=== PATIENT | male | born 1985 | race Caucasian/White ===

== ENCOUNTER 2016-08-08 15:12 | Emergency (ER) | payer OTHER ==
[~2016-08-08] VITALS: Ht 175.3 cm; Wt 79.4 kg
[~2016-08-08 15:12] MED LIST: AURALGAN 14 ML14 ML AS
[2016-08-08 15:45] VITALS: BP 111/69
[2016-08-08] MEDS ORDERED: FIORICET 50-301 EACH PO (17:24)
[2016-08-08] MEDS ORDERED: IMITREX50 M1 PO (17:24)
[2016-08-08] MEDS ORDERED: KETOROLAC TROME10 M1 PO (17:24)
--- NOTE | 2016-08-08 17:25 | ED HEADACHE COMPLAINT ---
History of Present Illness General Chief Complaint: Headache Stated Complaint: REGAN Source: patient Exam Limitations: no limitations Vital Signs & Intake/Output Vital Signs & Intake/Output Vital Signs Date Time Temp Pulse Resp B/P B/P Pulse O2 O2 Flow FiO2 Mean Ox Delivery Rate 08/08 1545 97.7 70 15 111/69 98 Room Air Room Air Allergies Coded Allergies: No Known Allergies (08/08/16) Reconcile Medications Acetic Acid/Antipyrine/Benzo (Auralgan 14 Ml) 14 ML BAY 3-4 GTT BID PRN EAR PAIN Butalb/Acetaminophen/Caffeine (Fioricet 50-300-40 MG Capsule) 50 MG-300 MG-40 MG CAPSULE 1 TAB PO TID PRN HEADACHE Ketorolac Tromethamine 10 MG TABLET 1 TAB PO TID PRN HEADACHE RECEIVED IM IN ER Sumatriptan Succinate (Imitrex) 50 MG TABLET 1 TAB PO AD PRN MIGRAINE TAKE ONE TAB, IF NO BETTER TAKE SECOND TAB IN 30 MINUTES, DO NOT EXCEED TWO TABS IN ONE DAY Triage Note: PT TO ED FOR HEADACHE THAT STARTED THURSDAY THAT ISN'T GOING AWAY. PER PT, FIRST TIME GETTING A HEADACHE FOR THIS LONG. DOES HAVE SEASONAL ALLERGIES WITH SOME CONGESTION. GOT A CORTISONE SHOT ON THURSDAY FOR ALLERGIES AND HEADACHE IS STILL NOT IMPROVING DESPITE ALSO USING MOTRIN. DENIES N/V, PHOTOSENSITIVITY, DIPLOPIA OR BLURRY VISION. Triage Nurses Notes Reviewed? yes Onset: Gradual Duration: waxing and waning Timing: recent history Quality/Severity: moderate Severity Numbers: 5 HPI: Patient is a 30-year-old male with a past medical history of seasonal allergies who presents emergency room with concerns of a 6 day history of intermittent throbbing bilateral temporal headache complaints. Patient was evaluated by primary care doctor on Thursday received cortisone injection with relief of symptoms. Patient has associated symptoms of sensitivity to loud noises. Denies any fever or chills blurred vision and photophobia and nausea vomiting. Denies any acute onset or thunderclap headache or worse headache of life. Patient has been taking ibuprofen with mild relief of symptoms. Patient can tolerate by mouth Patient does admit to significant caffeine use however in the past week he's decreased this Past History Travel History Traveled to [place] past 21 day No Medical History Any Pertinent Medical History? 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 No Review of Systems Review of Systems Constitutional: Reports: no symptoms. Eyes: Reports: no symptoms. Ears, Nose, Throat, Mouth: Reports: no symptoms. Respiratory: Reports: no symptoms. Cardiovascular: Reports: no symptoms. Gastrointestinal/Abdominal: Reports: no symptoms. Genitourinary: Reports: no symptoms. Musculoskeletal: Reports: no symptoms. Skin: Reports: no symptoms. Neurological/Psychological: Reports: see HPI, headache. Hematologic/Endocrine: Reports: no symptoms. Endocrine: Reports: no symptoms. Immunologic/Allergic: Reports: no symptoms. All Other Systems: Reviewed and Negative Physical Exam Physical Exam General Appearance: no apparent distress, alert, comfortable Cranial Nerves: normal hearing, normal speech, PERRL Comments: Well-developed well-nourished person in no acute distress HEENT: Normal EENT exam, extraocular motion intact, no nystagmus. Pupils equally round and reactive to light and accommodation. Nose is atraumatic. External auditory canal and Tympanic membranes clear. Pharynx normal. No swelling or edema. Neck: Supple, no lymphadenopathy, normal range of motion without pain or tenderness Back: Nontender, no CVA tenderness. Cardiovascular: Regular rate and rhythms no murmurs rubs or gallops, normal JVP Respiratory: Chest nontender. No respiratory distress.breath sounds clear to auscultation bilaterally Abdomen: Soft, nontender nondistended, no appreciable organomegaly. Normal bowel sounds. No ascites Extremity: No edema, no calf tenderness to palpation, normal and equal pulses. Neuro: Alert oriented x3, motor sensory normal, cranial nerves II through XII grossly intact. Negative cerebellar testing negative Romberg Skin: No appreciable rash on exposed skin, skin is warm and dry. Psych: Mood and affect is normal, memory and judgment is normal. Core Measures Severe Sepsis Present: No Septic Shock Present: No Progress Differential Diagnosis: carotid dissection, cav sinus thromb, cluster REGAN, encephalitis, IC mass/tumor, intracranial Hem., meningitis, migraine REGAN, musculoskeletal pain, post LP headache, sinusitis, SSS thrombosis, subarach. Hem., tension REGAN, temporal arteritis, TMJ syndrome, viral cephalgia Plan of Care: Current Medications Sig/William Start time Last Medication Dose Stop Time Status Admin Ketorolac 30 MG ONCE ONE 08/08 1729 UNVr Tromethamine 08/08 1730 (Toradol) Patient currently is in no apparent distress and has unremarkable physical exam findings. Patient denies any symptoms and no signs at this time of ICH or subarachnoid hemorrhage. (ALFREDO PRADO,GARFIELD) Departure Departure Disposition: HOME OR SELF CARE Condition: Stable Clinical Impression Primary Impression: Migraine Referrals: DEL MCCARTHY,PORTER HERZOG MD,MILAGROS (PCP/Family) Additional Instructions: As discussed begin the prescription and ketorolac for pain and inflammation and headaches. Begin the prescription of Imitrex for breakthrough headache relief and begin the prescription of Fioricet for relief of headache if no better. If symptoms worsen return to emergency room. Prescriptions awaiting at [facility]. If no better on Thursday follow-up with neurologist Dr. Sheikh for further evaluation treatment. Begin drinking plain water for hydration Departure Forms: Customer Survey General Discharge Information Prescriptions: Current Visit Scripts Ketorolac Tromethamine 1 TAB PO TID PRN HEADACHE #15 TAB RECEIVED IM IN ER Butalb/Acetaminophen/Caffeine (Fioricet 50-300-40 MG Capsule) 1 TAB PO TID PRN HEADACHE #15 TAB Sumatriptan Succinate (Imitrex) 1 TAB PO AD PRN MIGRAINE #9 TAB TAKE ONE TAB, IF NO BETTER TAKE SECOND TAB IN 30 MINUTES, DO NOT EXCEED TWO TABS IN ONE DAY
== END 2016-08-08 17:37 ==
LOC: ERH 15:12
DX: G43.909 Migraine, unspecified, not intractable, without status migrainosus (principal)
CPT/HCPCS: 96372; J1885

== ENCOUNTER 2016-08-27 11:12 | Emergency (ER) | payer OTHER ==
[~2016-08-27] VITALS: Ht 177.8 cm; Wt 79.4 kg
[~2016-08-27 11:12] MED LIST changes: +FIORICET 50-301 EACH PO; +IMITREX50 M1 PO; +KETOROLAC TROME10 M1 PO
--- NOTE | 2016-08-27 11:45 | ED HEADACHE COMPLAINT ---
History of Present Illness General Chief Complaint: Headache Stated Complaint: REGAN, SEEN HERE ON 08/08 FOR SAME Source: patient, old records Exam Limitations: no limitations Vital Signs & Intake/Output Vital Signs & Intake/Output Vital Signs Date Time Temp Pulse Resp B/P B/P Pulse O2 O2 Flow FiO2 Mean Ox Delivery Rate 08/27 1340 97.0 80 20 124/78 98 Room Air 08/27 1202 99 Room Air 08/27 1116 97.3 82 18 114/81 99 Room Air Allergies Coded Allergies: No Known Allergies (08/08/16) Reconcile Medications Cyclobenzaprine HCl 5 MG TABLET 1 TAB PO TIDPRN PRN REGAN Triage Note: PT STATES THAT HE WAS SEEN HERE 4 WEEKS AGO FOR HEADACHE, WAS SENT HOME WITH IMITREX, STATES THAT IT HELPED BUT FOR THE PAST WEEK PAIN HAS BEEN CONSTANT. Triage Nurses Notes Reviewed? 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 He was seen here on the symptoms began he states that they did improve and follow-up with an ear nose and throat physician however because the symptoms were returning prescribed him a steroid which she states she was having a reaction to some stopped. He denies history of similar symptoms in the past no recent fall or trauma fever chills neck or back pain no arm or leg pain numbness tingling no vision changes nausea vomiting is not taken anything for his headache. The pain starts in the back of the left side of his head and radiates over the top of his head to his left forehead. It is worse with palpation (GARFIELD WINTERS) Past History Travel History Traveled to [place] past 21 day No Medical History Any Pertinent Medical History? 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 No (GARFIELD WINTERS) Review of Systems Review of Systems Constitutional: Reports: see HPI. All Other Systems: Reviewed and Negative Comments Review of systems: See HPI, All other systems negative. Constitutional, no chills no fever, no malaise HEENT: No visual changes no sore throat no congestion Cardiovascular: No chest pain , no palpitation Skin: no rashes, no change in skin Respiratory: No dyspnea no cough no sputum GI: No nausea no vomiting, no diarrhea, no bloating/constipation Muscle skeletal: No joint pain, no joint swelling, no back pain, no neck pain, Neurologic: No numbness no confusion, headache Psych: No stress Heme/endocrine: No bruising Immunology: No lymphadenopathy (GARFIELD WINTERS) Physical Exam Physical Exam General Appearance: well developed/nourished, no apparent distress, alert, awake Cranial Nerves: normal hearing, normal speech, PERRL Comments: Well-developed well-nourished person in no acute distress HEENT: Normal EENT exam; PERRL, EOMI, no nystagmus. HEAD is atraumatic. moist mucous membranes. There is tenderness to palpation over the left occiput left parietal scalp there is no temporal artery tenderness no rash to the scalp no papilledema Neck: Supple, no lymphadenopathy, normal range of motion Back: Nontender, no CVA tenderness. Full range of motion Cardiovascular: Regular rate and rhythms no murmurs rubs Respiratory: Chest nontender.There were no bony deformities, no asymmetry. No respiratory distress. Patient speaking in full complete sentences. Breath sounds clear to auscultation bilaterally: NO W/R/R Abdomen: Soft, nontender nondistended, no appreciable organomegaly. Normal bowel sounds. No rebound/guarding, No appreciable enlargement of the abdominal aorta, No ascites. Extremity: No edema, full range of motion of extremities, normal and equal pulses bilaterally, 5 out of 5 strength noted to bilateral upper and lower extremities Neuro: Alert oriented x3, motor sensory normal, cranial nerves II through XII grossly intact. There were no obvious focal neurologic abnormalities. Skin: No appreciable rash on exposed skin, skin is warm and dry. Psych: Mood and affect is normal, memory and judgment is normal. Core Measures Severe Sepsis Present: No Septic Shock Present: No (GARFIELD WINTERS) Progress Differential Diagnosis: cluster REGAN, IC mass/tumor, intracranial Hem., meningitis , musculoskeletal pain, subarach. Hem., tension REGAN, temporal arteritis Plan of Care: Orders Procedure Date/time Status LYME TITRE 08/27 115 Active COMPREHENSIVE METABOLIC PANEL 08/27 115 Complete CBC WITHOUT DIFFERENTIAL 08/28 1155 Complete Laboratory Tests 08/27/16 1158: Anion Gap 10, Estimated GFR > 60, BUN/Creatinine Ratio 23.8, Glucose 87, Calcium 9.4, Total Bilirubin 0.6, AST 24, ALT 35, Alkaline Phosphatase 61, Total Protein 7.3, Albumin 4.6, Globulin 2.7, Albumin/Globulin Ratio 1.7, CBC w Diff NO MAN DIFF REQ, RBC 5.20, MCV 85.0, MCH 29.0, RDW 13.3, MPV 8.5, Gran % 55.1, Lymphocytes % 36.3, Monocytes % 6.8, Eosinophils % 1.0, Basophils % 0.8, Absolute Granulocytes 5.0, Absolute Lymphocytes 3.3, Absolute Monocytes 0.6, Absolute Eosinophils 0.1, Absolute Basophils 0.1, PUBS MCHC 34.0, Lyme Disease Antibody Pending Patient medicated Toradol CAT scan and labs ordered old records reviewed Repeat evaluation patient reports only slight improvement of headache discussed with patient all his results. Advised close follow up with his primary care this week Flexeril as directed. Given symptoms are reproducible palpation please fever or answer requires further workup at this time he feels comfortable plan answer all his questions (GARFIELD WINTERS) Diagnostic Imaging: Viewed by Me: CT Scan. Discussed w/RAD: CT Scan. Radiology Impression: PATIENT: MIRIAM BETH PRESENT AGE: 30 PATIENT ACCOUNT NO: [id number] : 84 LOCATION: [facility] ORDERING PHYSICIAN: GARFIELD PRADO SERVICE DATE: 08/27/16-115 EXAM TYPE: CAT - CT HEAD WO IV CONTRAST EXAMINATION: CT HEAD WITHOUT CONTRAST CLINICAL INFORMATION: Left-sided headache. COMPARISON: None. TECHNIQUE: Contiguous axial images of the brain were obtained without IV contrast. DLP: 622 mGy-cm. FINDINGS: There are no pathologic extra-axial fluid collections. The lateral, third, fourth ventricles are nondilated and concordant with the appearance of the sulci. There is no evidence for acute intraparenchymal hemorrhage or infarct. There is neither mass nor mass effect. There is no shift of midline structures. The paranasal sinuses and mastoid air cells are clear. There are no osseous lesions. IMPRESSION: No evidence for acute intracranial injury. DICTATED BY: SKY DAVIS MD DATE/TIME DICTATED:08/27/161228 [employer] COUNSELOR:SIERRA DATE/TIME TRANSCRIBED:1228 CONFIDENTIAL, DO NOT COPY WITHOUT APPROPRIATE AUTHORIZATION. < Electronically signed in Other Vendor System> SIGNED BY: SKY DAVIS MD 08/27/16 1234 (GARFIELD WINTERS) Departure Departure Time of Disposition: 1243 Disposition: HOME OR SELF CARE Condition: Stable Clinical Impression Primary Impression: Tension headache Referrals: MINO MCCARTHY,MILAGROS (PCP/Family) Additional Instructions: follow up with your pmd today for repeat eval later this week. flexeril as directed- this may make you drowsy. return to the er with any concerns. Departure Forms: Customer Survey General Discharge Information Prescriptions: Current Visit Scripts Cyclobenzaprine HCl 1 TAB PO TIDPRN PRN REGAN #12 TAB (GARFIELD WINTERS) PA/ATOMIC FUEL ASSEMBLER Co-Sign Statement Statement: ED Attending supervision documentation- I saw and evaluated the patient. I have also reviewed all the pertinent lab results and diagnostic results. I agree with the findings and the plan of care as documented in the PA's/ATOMIC FUEL ASSEMBLER's documentation. x I have reviewed the ED Record and agree with the PA's/ATOMIC FUEL ASSEMBLER's documentation. [] Additions or exceptions (if any) to the PAs/ATOMIC FUEL ASSEMBLER's note and plan are summarized below: [] (TAD MCCARTHY,CHEN)
[2016-08-27 12:05] LABS: ABSOLUTE BASOPHIL COUNT 0.1 /CUMM (0.0-0.2); ABSOLUTE EOSINOPHIL COUNT 0.1 /CUMM (0.0-0.7); ABSOLUTE LYMPH COUNT 3.3 /CUMM (1.2-3.4); ABSOLUTE MONOCYTE COUNT 0.6 /CUMM (0.10-0.60); BASOPHIL % 0.8 % (0.0-2.0); GRANULOCYTE % 55.1 % (42.2-75.2); HEMATOCRIT 44.2 % (42-52); MEAN PLATELET VOLUME 8.5 FL (7.4-10.4); PLATELET COUNT 237 /CUMM (130-400); RBC DISTRIBUTION WIDTH 13.3 % (11.5-14.5)
--- NOTE | 2016-08-27 12:34 | CT SCAN REPORT ---
EXAMINATION: CT HEAD WITHOUT CONTRAST CLINICAL INFORMATION: Left-sided headache. COMPARISON: None. TECHNIQUE: Contiguous axial images of the brain were obtained without IV contrast. DLP: 622 mGy-cm. FINDINGS: There are no pathologic extra-axial fluid collections. The lateral, third, fourth ventricles are nondilated and concordant with the appearance of the sulci. There is no evidence for acute intraparenchymal hemorrhage or infarct. There is neither mass nor mass effect. There is no shift of midline structures. The paranasal sinuses and mastoid air cells are clear. There are no osseous lesions. IMPRESSION: No evidence for acute intracranial injury.
[2016-08-27] MEDS ORDERED: CYCLOBENZAPRINE5 M2 PO (12:44)
[2016-08-27 13:40] VITALS: BP 124/78
== END 2016-08-27 13:40 ==
LOC: ERH 11:12
PROVIDERS: Physician Assistant Medical
DX: G44.209 Tension-type headache, unspecified, not intractable (principal)
CPT/HCPCS: 86618; 96374; J1885